=== PATIENT | female | born 1990 | race African-American/Black ===

== ENCOUNTER 2017-10-28 23:56 | Inpatient (IN) | payer MEDICAID ==
[~2017-10-28] VITALS: Ht 152.4 cm; Wt 64.0 kg
[~2017-10-28 23:56] MED LIST: IBUP600 PO; PERI8.6T PO; PRENTAB72 PO
[2017-10-29] VITALS (19 sets, daily range): BP systolic 115–132; BP diastolic 52–71; PULSE 88–102; RESP 18; TEMP 97.6–98.5
[2017-10-29] MEDS ORDERED: MAGNESIUM SULFATE 4 GM PREMIX 100 ML IV ONE (01:00)
[2017-10-29] MEDS ORDERED: CALCIUM GLUCONATE 10% 1 GM/10 ML VIAL IV PUSH PRN (01:00)
[2017-10-29] MEDS ORDERED: MAGNESIUM SULFATE 40 GM PREMIX 1,000 ML ONE (01:04)
--- NOTE | 2017-10-29 01:19 | HHI.HP ---
HPI Chief Complaint Yue wynn Date Seen: Oct 29, 2017 Time Seen: 01:00 Travel History International Travel<30 Days: No Contact w/Intl Traveler<30Days: No Known Affected Area: No History of Present Illness HPI Patient is 27-year-old black female L3 now at approximately 30 weeks gestation EDC 01/02/18 by an earlier ultrasound who presents with gross premature rupture the membranes proximally 1 hour prior to presentation to OB ED she denies contractions but does have some pain in the abdomen, no vaginal bleeding noted. heart rates in the 140s and the is reactive for 30 weeks has no regular contractions only an occasional one. has a history of poor obstetric outcome with incompetent cervix in the past she is delivered 3 babies prematurely survived because of her cerclage placed and those babies delivered in the 26-32 week range, she had 3 other babies delivered of a 20-21 week range that were not with cerclages. This she had an ultrasound earlier in that gave the above due date and the gestational age now but that was her only visit she had no other visits no care no cerclage with this Weeks Gestation: 30 Para: 6 : 7 Last Menstrual Period: Oct 29, 2017 History Obstetric History Obstetric History Patient's history of incompetent cervix with 3 premature deliveries that had a cerclage in place all still delivering early between 26 and 32 weeks, she had the 3 other babies born in the 20-21 wk range that were delivered because of incompetent cervix and did not survive. She's had no care with this of no cerclage placed the other cerclages were placed in the [facility] Past Surgical History Narrative Surgical Cervical cerclages Social History Alcohol Use: No Tobacco Use: No Substance Abuse: No Allergies-Medications (Allergen,Severity, Reaction): Uncoded Allergies: no known allergy (Allergy, Unknown, 10/29/17) Review of Systems General / Constitutional: No: Fever, Weight Gain, Chills, Other Eyes: No: Diploplia, Blurred Vision, Visual changes, Pain, Photophobia HENT: No: Headaches, Vertigo, Lightheadedness Cardiovascular: No: Irregular Rhythm, Chest Pain or Discomfort, Palpitations, Tachycardia, Syncope, Varicosities, Edema, Cyanosis Respiratory: No: Cough, Short of Breath, Other Gastrointestinal: No: Nausea, Vomiting, Diarrhea Genitourinary: No: Decreased Urinary Output, Oliguria Musculoskeletal: No: Limited ROM, Weakness, Cramping, Edema, Pain Skin: No Rash, No Itching, No Dryness, No Lumps, No Change in Pigmentation, No Change in Nails, No Alopecia, No Lesions Neurologic: No: Weakness, Dizziness, Syncope, Focal Abnormalities, Coordination Problem, Headache, Slurred Speech, Seizures Psychiatric: No: Depression, Suicidal Ideations, Homicidal Ideation Endocrine: No: Heat Intolerance, Cold Intolerance, Polydipsia, Polyuria, Other Physical Exam Narrative GENERAL: Well-nourished, well-developed patient. SKIN: Warm and dry. HEAD: Normocephalic and atraumatic. EYES: No scleral icterus. No injection or drainage. ENT: No nasal drainage noted. Mucous membranes pink. Airway patent. NECK: Supple, trachea midline. No JVD. CARDIOVASCULAR: Regular rate and rhythm without murmurs, gallops, or rubs. RESPIRATORY: Breath sounds equal bilaterally. No accessory muscle use. BREASTS: Bilateral exam showed no masses , no retractions, no nipple discharge. ABDOMEN/GI: Abdomen soft, non-tender, bowel sounds present, no rebound, no guarding Gravid to [-26] weeks size Fundal Height: [-26] GENITOURINARY: External Genitalia: intact and normal in appearance Speculum exam performed--there is pooling in the posterior fornix clear amniotic fluid cervix appears thick maybe fingertip dilated at the most there was some cervical mucus present at the external os no blood seen Cervix: [Fingertip-] Dilatation: [Fingertip-] Effacement: [-] Thick Station: [-3] Presentation: [Incomplete breech seen on ultrasound-] Membranes: [ ruptured] amnio sure positive Uterine Contractions: [Occasional-] FHT's: Category: [1-] Baseline: [-133] Reactive: [-yes] Variability: [mod-] Decels: [-0] EXTREMITIES: No cyanosis or edema. BACK: Nontender without obvious deformity. No CVA tenderness. NEUROLOGICAL: Awake and alert. Motor and sensory grossly within normal limits. Five out of 5 muscle strength in all muscle groups. Normal speech. Caprini VTE Risk Assessment Caprini VTE Risk Assessment: No/Low Risk (score <= 1) Caprini Risk Assessment Model Point Value = 1 Point Value = 2 Point Value = 3 Point Value = 5 Age 41-60 Minor surgery BMI > 25 kg/m2 Swollen legs Varicose veins or History of unexplained or recurrent spontaneous Oral contraceptives or hormone replacement Sepsis (< 1 month) Serious lung disease, including pneumonia (< 1 month) Abnormal pulmonary function Acute myocardial infarction Congestive heart failure (< 1 month) History of inflammatory bowel disease Medical patient at bed rest Age 61-74 Arthroscopic surgery Major open surgery (> 45 min) Laparoscopic surgery (> 45 min) Malignancy Confined to bed (> 72 hours) Immobilizing plaster cast Central venous access Age >= 75 History of VTE Family history of VTE Factor V Leiden Prothrombin [id number] Lupus anticoagulant Anticardiolipin antibodies Elevated serum homocysteine Heparin-induced thrombocytopenia Other congenital or acquired thrombophilia Stroke (< 1 month) Elective arthroplasty Hip, pelvis, or leg fracture Acute spinal cord injury (< 1 month) Prophylaxis Regimen Total Risk Factor Score Risk Level Prophylaxis Regimen 0-1 Low Early ambulation 2 Moderate Order ONE of the following: *Sequential Compression Device (SCD) *Heparin 5000 units SQ BID 3-4 Higher Order ONE of the following medications: *Heparin 5000 units SQ TID *Enoxaparin/Lovenox 40 mg SQ daily (WT < 150 kg, CrCl > 30 mL/min) *Enoxaparin/Lovenox 30 mg SQ daily (WT < 150 kg, CrCl > 10-29 mL/min) *Enoxaparin/Lovenox 30 mg SQ BID (WT < 150 kg, CrCl > 30 mL/min) AND/OR *Sequential Compression Device (SCD) 5 or more Highest Order ONE of the following medications: *Heparin 5000 units SQ TID (Preferred with Epidurals) *Enoxaparin/Lovenox 40 mg SQ daily (WT < 150 kg, CrCl > 30 mL/min) *Enoxaparin/Lovenox 30 mg SQ daily (WT < 150 kg, CrCl > 10-29 mL/min) *Enoxaparin/Lovenox 30 mg SQ BID (WT < 150 kg, CrCl > 30 mL/min) AND *Sequential Compression Device (SCD) Data Data Orders Orders Ob Poc Ultrasound (10/29/17 ) Admit To Inpatient (10/29/17 ) Vital Signs (Adult) Q4H (10/29/17 00:55) Activity Bed Rest (10/29/17 00:55) Heart (10/29/17 00:55) Diet Npo (10/29/17 Breakfast) Lactated Ringer's 1000 Ml Inj (Lr 1000 M (10/29/17 00:55) Sodium Chloride 0.9% Flush (Ns Flush) (10/29/17 01:00) Sodium Chloride 0.9% Flush (Ns Flush) (10/29/17 09:00) Betamethasone Inj (Celestone Soluspan In (10/29/17 01:00) Magnesium Sulfate 40 Gm Premix (Magnesiu (10/29/17 00:55) Calcium Gluconate Inj (Calcium Gluconate (10/29/17 01:00) Ondansetron Inj (Zofran Inj) (10/29/17 01:00) Complete Blood Count With Diff (10/30/17 06:00) Complete Blood Count With Diff (10/31/17 06:00) Complete Blood Count With Diff (11/01/17 06:00) Hold Clot (10/29/17 00:55) Group B Beta Strep Scrn (Gbs) (10/29/17 00:55) Gc And Chlamydia Pcr (10/29/17 00:55) Drug Screen, Random Urine (10/29/17 00:55) Urinalysis - C+S If Indicated (10/29/17 00:55) Magnesium Sulfate 4 Gm Premix (Magnesium (10/29/17 01:00) Us Ob Limited (10/29/17 09:00) Ampicillin Inj (Ampicillin Inj) (10/29/17 04:00) Erythromycin Ec (Emycin Ec) (10/29/17 06:00) Labs Bedside ultrasound was done by myself shows a single intrauterine in the incomplete breech presentation with growth parameters measuring out at 28 weeks on average and 1142 g weight, basic anatomy within normal limits, there is essentially anhydramnios no amniotic fluid really identified, the cardiac motions present and normal right with breathing was noted, movement noted and tone also seen. There is a fundal placenta grade 1 Assessment/Plan Assessment and Plan Impression-P PROM at 30 weeks with breech fetus at 28 weeks size less than 1142 g estimated weight, amnio sure is positive and gross rupture of fluid noted on speculum exam History of incompetent cervix and poor obstetric outcome in essentially all her previous pregnancies, have 3 pregnancies survived due to cerclage placement Plan--admit, conservative care for the time being I explained to the patient that one of 2 things will happen in her case either she'll go into labor or show signs of infection chorioamnionitis or both, also the fetus could actually show signs of distress and required delivery because of that and because the baby is breech she would have section which she's never had before and does not want this time but would be needed in this case. Also plan IV magnesium sulfate neuroprotective effect as well as tocolyse this, IM steroids, IV antibiotics ampicillin IV and erythromycin by mouth[ not available here IV] , plan the GBS and GC and chlamydia PCR studies Puma Connors II, MD Oct 29, 2017 01:19
[2017-10-29] MEDS: LACTATED RINGER'S 1000 ML INJ 1,000 ML IV SCH ×2 (01:24→12:53)
[2017-10-29] MEDS: MAGNESIUM SULFATE 40 GM PREMIX 1,000 ML IV SCH ×4 (01:25→23:25)
[2017-10-29] MEDS: BETAMETHASONE SOD PHOS/ACETATE SUSP 30 MG/5 ML VIAL IM SCH (01:44)
[2017-10-29 02:24] LABS: BLOOD, URINE SMALL (NEG); COMMENT (UR) CATH-CULT NOT IND; CULTURE IF INDICATED CATH CULTURE NOT IND; GLUCOSE,URINE NEG (NEG); KETONE, URINE NEG (NEG); NITRITE,URINE NEG (NEG); SQUAMOUS EPITHELIAL CELL URINE <1 /hpf (0-5); URINE COLOR YELLOW (YELLW/STRAW)
[2017-10-29 02:37] LABS: ALT (GPT) 14 U/L (10-53); ANION GAP 7 MEQ/L (5-15); AST (GOT) 11 U/L (15-37); BICARBONATE 26.8 MEQ/L (21.0-32.0); BLOOD UREA NITROGEN 11 MG/DL (7-18); CHLORIDE 103 MEQ/L (98-107); GLOMERULAR FILTRATION RATE 246 ML/MIN (>89); SODIUM (NA) 137 MEQ/L (136-145)
[2017-10-29 02:39] LABS: ALKALINE PHOSPHATASE 74 U/L (45-117); TOTAL BILIRUBIN ADULT 0.2 MG/DL (0.2-1.0)
[2017-10-29] MEDS: AMPICILLIN INJ 2,000 MG in SODIUM CHLORIDE 0.9% INJ 100 ML IV SCH ×4 (04:00→21:32)
[2017-10-29 04:01] LABS: CHLAMYDIA PCR NOT DETECTED (NOT DETECT); NEISSERIA PCR NOT DETECTED (NOT DETECT)
[2017-10-29 04:30] LABS: RUBELLA IGG ANTIBODY 74.6 IU/mL (10.0-500.0); RUBELLA STATUS IMMUNE (IMMUNE)
[2017-10-29] MEDS ORDERED: DIPHTH/TETANUS/ACEL PERTUSSIS (BOOSTER) 0.5 ML VIAL/PFS IM ONE (07:00)
[2017-10-29 07:18] LABS: AUTOMATED NEUTROPHIL # 10.2 TH/MM3 (1.8-7.7); BASOPHIL # 0.1 TH/MM3 (0-0.2); BASOPHIL % 0.7 % (0.0-2.0); EOSINOPHIL # 0.2 TH/MM3 (0-0.4); EOSINOPHIL % 1.5 % (0.0-4.0); HEMATOCRIT 30.8 % (35.0-46.0); LYMPH % 19.8 % (9.0-44.0); LYMPHOCYTE # 2.9 TH/MM3 (1.0-4.8); MEAN CELL VOLUME 82.7 FL (80.0-100.0); MEAN CORPUSCULAR HEMOGLOBIN 26.4 PG (27.0-34.0); MEAN CORPUSCULAR HGB CONC 31.9 % (32.0-36.0); MONO % 7.6 % (0.0-8.0); NEUT % 70.4 % (16.0-70.0); PLATELET COUNT 363 TH/MM3 (150-450); RED BLOOD COUNT 3.72 MIL/MM3 (4.00-5.30); WHITE BLOOD COUNT 14.4 TH/MM3 (4.0-11.0)
[2017-10-29] MEDS: ERYTHROMYCIN EC 500 MG TABEC PO SCH ×3 (07:26→19:31)
[2017-10-29 07:27] LABS: HEMO FLAGS AUTO DIFF
[2017-10-29 08:11] LABS: EOSINOPHILS 3 % (0-4); MYELOCYTES 1 % (0-0); NEUTROPHIL # MANUAL DIFF 9.9 TH/MM3 (1.8-7.7); POLYS (SEG NEUTROPHILS) 68 % (16-70); WBC DIFF SAMPLE 100
[2017-10-29 08:12] LABS: PLATELET ESTIMATE SMEAR NORMAL (NORMAL); PLATELET MORPHOLOGY NORMAL (NORMAL); SCAN/DIFF FINAL DIFF MANUAL
[2017-10-29] MEDS: SODIUM CHLORIDE 0.9% FLUSH 10 ML FLUSH IV FLUSH SCH ×2 (09:00→19:41)
--- NOTE | 2017-10-29 13:20 | HHI.PR ---
Addendum to Inpatient Note Addendum Reason: Additional Documentation Additional Information Consult Maternal Hx: 27 y/o, at 30 weeks gestation (based on previous u/s) with diagnosis of PPROM, incompetent cervix (no cerclage placed this ), and late/poor PNC. Mother admitted to [facility] on 10/29/17, secondary to grossly ruptured membranes. Most recent Ultrasound on 10/29/17 confirms intrauterine with estimated gestational age of 28 weeks, estimated weight of 1142 grams , and anhydramnios with incomplete breech presentation. Maternal risk factors/complications: UDS + for cocaine, 3 previous losses at 20- 21 weeks when cerclage not placed (3 living children delivered at 26-32 weeks when cerclage was was placed). Maternal Labs: Blood type A+, Rubella immune, RPR non reactive, Hepatitis B pending, HIV pending, GBS negative, GC negative, CZ negative, Hepatitis C pending Maternal Medications: Magnesium Betamethasone (1st dose given 10/29 at 0144) Ampicillin Erythromycin Social: Marital status: single Family Hx: Mother reports no genetic or inherited conditions. Reports other children are well. Substance Abuse: UDS + for cocaine Discussion: Dr. Gracia and SETH met with mother in her room to provide information regarding delivery. Mom was receptive to visit but appeared somewhat groggy. Mom was informed that [facility] has a level 2 NICU and is able to take care of babies that are 28 weeks or greater and that are 1000 grams and greater. She was told that we anticipate being able to care for her baby but that if infant is more premature than expected or weighs less than expected, that the would have to be transferred to a level III NICU. We discussed that the baby may have breathing difficulties when born and require CPAP or intubation with possible surfactant. She was told that the would need peripheral IVs and possibly a central line to provide IVF, TPN , and medications. Feeds would be started and gradually advanced as tolerated. Mom enquired about but was told that she would not be able to do so given her positive drug screen for cocaine. Mom was also informed that would be monitored jaundice and would potentially need treatment. Mom was also told that her baby may require antibiotics after given concerns for infection with PPROM. Mom remembered the use of isolettes from her previous babies but was unaware that the infant would not be staying in her room. Mom was educated on the NICU, visitation policies, and that she is strongly encouraged to visit as much as possible and participate in the care of her baby. Mom enquired about kangaroo care and was encouraged to do that as well. Mom was made aware of medical staff presence 10/06 and that someone would attend her delivery. Mom was also made aware of other operations support specialist such as case management and then chip separator. Mom had no further questions a the conclusion of the discussion and verbalized understanding. 40 minutes was spent on this consultation and greater than 50% of the consultation time was spent with the patient. Lucinda Hebert Oct 29, 2017 13:20
[2017-10-30] VITALS (10 sets, daily range): BP systolic 117–127; BP diastolic 49–56; PULSE 83–94; RESP 18–20; TEMP 98–98.8
[2017-10-30] MEDS: ERYTHROMYCIN EC 500 MG TABEC PO SCH ×5 (00:49→23:39)
[2017-10-30] MEDS: BETAMETHASONE SOD PHOS/ACETATE SUSP 30 MG/5 ML VIAL IM SCH (00:53)
[2017-10-30] MEDS: LACTATED RINGER'S 1000 ML INJ 1,000 ML IV SCH ×2 (00:55→16:01)
[2017-10-30] MEDS: SODIUM CHLORIDE 0.9% FLUSH 10 ML FLUSH IV FLUSH PRN ×3 (01:12→15:32)
[2017-10-30] MEDS: AMPICILLIN INJ 2,000 MG in SODIUM CHLORIDE 0.9% INJ 100 ML IV SCH ×4 (04:47→22:31)
[2017-10-30] MEDS: SODIUM CHLORIDE 0.9% FLUSH 10 ML FLUSH IV FLUSH SCH ×2 (09:51→21:00)
--- NOTE | 2017-10-30 10:10 | PD.OB.ANTE ---
Subjective Interval History Patient is doing well this morning, she has no acute concerns except nausea that she had this morning with the medication. She denies fever or chills, headache, chest pain, shortness of breath, contractions, dysuria. She had a lot of questions about if the baby can be born vaginally as she would prefer not to have a . She also wanted toast and noted that she has been drug free during this so she believes that the cocaine that was found in her urine drug screen must have been given to her by somebody without her knowledge. Objective Vital Signs Vital Signs Date Time Temp Pulse Resp B/P (MAP) Pulse Ox O2 Delivery O2 Flow Rate FiO2 10/30/17 07:40 18 10/30/17 07:40 98.3 10/30/17 07:38 94 127/54 (78) 10/30/17 04:53 98.0 18 10/30/17 01:01 98.3 18 10/29/17 21:32 96 132/60 (84) 10/29/17 21:29 97.8 18 10/29/17 18:34 95 115/61 (79) 10/29/17 18:33 98.5 18 10/29/17 14:31 102 120/52 (74) 10/29/17 14:31 97.6 18 10/29/17 10:41 18 10/29/17 10:35 90 123/62 (82) Lab & Micro Results Date/Time Source Procedure Growth Status 10/29/17 07:45 Genital Genital Region Group B Streptococcus Screen Pending Received Physical Exam GENERAL: Well-nourished, well-developed patient. CARDIOVASCULAR: Regular rate and rhythm without murmurs, gallops, or rubs. RESPIRATORY: Breath sounds equal bilaterally. No accessory muscle use. ABDOMEN/GI: Abdomen soft, non-tender. Fundus: soft Uterine Contractions: None FHT's: Category: I Baseline: 120 Reactive: Accelerations present Variability: Moderate Decels: None EXTREMITIES: No cyanosis or edema, non-tender, without signs of DVT. Assessment and Plan Assessment and Plan 1. PPROM -Breech presentation at 30 weeks -Plan for cesarian section -IV magnesium was discontinued yesterday -Received 2 IM steroid doses -Continue IV ampicillin and PO erythromycin to promote latency and for chorioamnionitis prophylaxis -Has received 5 doses of IV ampicillin. Will switch to oral ampicillin 500 mg orally three times daily for five days -Perinatology consult pending -Neonatology consulted: * Will take care of baby in the [facility] * Advised against due to UDS positive for cocaine 2. Social -UDS positive for cocaine - watch for signs of withdrawal -Baby is to be given up for adoption Janiya Thapa MD R2 Oct 30, 2017 10:10
[2017-10-30] MEDS ORDERED: PRENATAL VITAMIN CHEWABLE TAB ONE ×2 (11:48→11:59)
[2017-10-30] MEDS: MULTIVIT/MIN/PREN/FOL AC/IRON PRENATAL TAB PO SCH (12:17)
[2017-10-30] MEDS ORDERED: ceFAZolin INJ 1,000 MG VIAL ONE (12:29)
[2017-10-30] MEDS: ONDANSETRON HCL 4 MG/2 ML VIAL IV PUSH PRN (15:32)
--- NOTE | 2017-10-30 20:13 | PD.CONS ---
HPI Travel History International Travel<30 Days: No Contact w/Intl Traveler<30Days: No Known Affected Area: No History of Present Illness HPI Consult requested by Hospitalist managing Mrs. Taylor regarding PROM at 30 weeks gestation. Ms. Taylor is a 27 year old AAF at 30 weeks gestation. She presented to [facility] last pm complaining of LOF. She was confirmed to have ruptured membranes on exam with a cervix by SSE that appears closed. She denies cramping, bleeding , fever/chills, abdominal pain or other discomfort at this time. Endorses movement. She has had no care during this . She is dated by an early ultrasound with a stated EDC of 01/02/18. She has a history of cervical incompetence. She has lost 3 pregnancies in the 20-22 week range due to this. She has had 3 pregnancies in which she was given a cerclage and ultimately delivered between 26-32 weeks due to PTL. She does not have a cerclage currently. Her tox screen is positive for cocaine which she denies using. Overall, she is a difficult historian. PMH: none PSH: cercalge x 3 POB: as per HPI. PGYN: denies abnormal Pap or cervical procedures ALL: NKDA Soc: denies drug or alcohol use, says she has DCF case open and would not use cocaine while she was being investigated. Does endorse a history of multidrug use in the past. Allergies-Medications (Allergen,Severity, Reaction): Coded Allergies: No Known Allergies (Verified Allergy, Unknown, 10/30/17) Home Meds Active Scripts Sennosides-Docusate Sodium (Nikki-Colace 8.6-50 mg) 1 Tab Tab, 2 TAB PO Q12H Y for CONSTIPATION, #60 TAB Prov:Jeramie Serrano MD R3 02/10/16 Ibuprofen (Motrin 600 Mg Tab) 600 Mg Tab, 600 MG PO Q6H Y for CRAMPING, #30 TAB Prov:Jeramie Serrano MD R3 02/10/16 Reported Medications Vit W/ Ferrous Fumara () Tab, 1 TAB PO DAILY 04/08/13 Review of Systems General / Constitutional: No: Fever, Weight Gain, Weight Loss, Chills, Other Respiratory: No: Cough, Short of Breath, Wheezing, Other Gastrointestinal: No: Nausea, Vomiting, Diarrhea, Abdominal Pain, Hematemesis, Hematochezia, Constipation, Changes in Bowel Habits, Indigestion, Loss of Appetite, Other Physical Exam Vital Signs Date Time Temp Pulse Resp B/P (MAP) Pulse Ox O2 Delivery O2 Flow Rate FiO2 10/30/17 17:48 98.6 10/30/17 15:19 98.6 10/30/17 15:19 92 121/56 (77) 10/30/17 15:19 20 10/30/17 11:52 94 122/49 (73) 10/30/17 11:52 98.0 18 10/30/17 07:40 18 10/30/17 07:40 98.3 10/30/17 07:38 94 127/54 (78) 10/30/17 04:53 98.0 18 10/30/17 01:01 98.3 18 10/29/17 21:32 96 132/60 (84) 10/29/17 21:29 97.8 18 Narrative GENERAL: Well-nourished, well-developed patient. SKIN: Warm and dry. HEAD: Normocephalic and atraumatic. EYES: No scleral icterus. No injection or drainage. ENT: No nasal drainage noted. Mucous membranes pink. Airway patent. NECK: no thyromegaly RESPIRATORY: unlabored ABDOMEN/GI: Abdomen soft, non-tender Gravid uterus non-tender Fundal Height: [-] GENITOURINARY: deferred FHT's: normal baseline, reactive without decels currently EXTREMITIES: No cyanosis or edema. NEUROLOGICAL: Awake and alert. Motor and sensory grossly within normal limits. Data Data Orders Orders Heart (10/29/17 20:09) ^ Other Nursing Orders (10/29/17 20:09) Consult Perinatology (10/30/17 ) Ncwttjha-Akb-Unhpd-Iron Prenat (Stuartna (10/30/17 11:00) Cpmcjad-Wla-Yd-Iron Prena Chew ( (10/30/17 11:48) Xqvsuej-Mcz-Ad-Iron Prena Chew ( (10/30/17 11:59) Cefazolin Inj (Ancef Inj) (10/30/17 12:29) Labs Date/Time Source Procedure Growth Status 10/29/17 07:45 Genital Genital Region Group B Streptococcus Screen - Preliminary RESULTS PENDING Resulted MDM Medical Record Reviewed: Yes Interpretation(s) 1. 30 week IUP by stated EDC 2. PPROM without evidence of chorioamnionitis, abruption, or labor at this time. 3. History of cervical insufficiency. No cerclage this . 4. No PNC. 5. Tox screen positive for cocaine. Pt denies use. 6. Breech presentation. 7. testing currently reassuring. Counseling: Risks and benefits of expectant management of PROM were reviewed with the patient in detail. All questions answered to her satisfaction. She indicated agreement with the plan of care. She seemed mainly preoccupied regarding her cocaine result and wants to know how this will affect her ability to breastfeed. Recommendations: 1. Continue inpatient management. 2. Twice daily NST. 3. Twice weekly BPP/Dopplers. 4. Complete steroids. 5. Until 32 weeks, Magneisum sulfate will be indicated for neuroprotection with onset of labor. Exception in the case of abruption. 6. Will require due to presentation. 7. Deliver at 34 weeks gestation or sooner with evidence of chorioamnionitis, labor, abruption, or non-reassuring testing. 8. NICU consult requested. 9. GBS culture, gonorrhea, chlamydia, HIV, Hepatitis B and C Ab, and labs. HgA1c as no screening for diabetes and GTT will not be accurate immediately after steroids. 10. Social work consultation. 40 minute consultation aVlerie Keller MD Oct 30, 2017 20:13
--- NOTE | 2017-10-30 22:09 | HHI.PR ---
Subjective Remarks NST report Indications: IUP at 30 weeks, no care, P PROM, breech, history of incompetent cervix, cocaine use NST with heart rate in the 120s to 130s with moderate long-term variability, good accelerations, no decelerations. The heart rate tracing is reactive for gestational age. This is a category 1 heart rate tracing Follow-up: We'll continue follow-up NSTs Final diagnosis IUP at 30 weeks, no care, PPROM, breech, history of incompetent cervix, cocaine use Objective Vital Signs Date Time Temp Pulse Resp B/P (MAP) Pulse Ox O2 Delivery O2 Flow Rate FiO2 10/30/17 19:50 91 121/54 (76) 10/30/17 19:49 98.8 18 10/30/17 17:48 98.6 10/30/17 15:19 98.6 10/30/17 15:19 92 121/56 (77) 10/30/17 15:19 20 10/30/17 11:52 94 122/49 (73) 10/30/17 11:52 98.0 18 10/30/17 07:40 18 10/30/17 07:40 98.3 10/30/17 07:38 94 127/54 (78) 10/30/17 04:53 98.0 18 10/30/17 01:01 98.3 18 Result Diagram: 10/29/17 0120 10/29/17 0120 Monica Manzo MD Oct 30, 2017 22:09
[2017-10-31] VITALS (13 sets, daily range): BP systolic 96–115; BP diastolic 57–79; PULSE 79–90; RESP 6–18; TEMP 98.1–98.6
[2017-10-31] MEDS: LACTATED RINGER'S 1000 ML INJ 1,000 ML IV SCH ×4 (04:00→22:19)
[2017-10-31] MEDS: AMPICILLIN INJ 2,000 MG in SODIUM CHLORIDE 0.9% INJ 100 ML IV SCH (05:04)
[2017-10-31] MEDS: ERYTHROMYCIN EC 500 MG TABEC PO SCH ×3 (05:04→18:37)
[2017-10-31] MEDS: ONDANSETRON HCL 4 MG/2 ML VIAL IV PUSH PRN (05:26)
--- NOTE | 2017-10-31 08:55 | HHI.PR ---
Subjective Remarks NST report Indications: IUP at 30.3 weeks, no care, P PROM, breech, history of incompetent cervix, cocaine use NST with heart rate in the 120s to 130s with moderate long-term variability, good accelerations, no decelerations. The heart rate tracing is reactive for gestational age. This is a category 1 heart rate tracing. No ctx are noted. Follow-up: We'll continue follow-up NSTs Final diagnosis IUP at 30.3 weeks, no care, PPROM, breech, history of incompetent cervix, cocaine use Objective Vital Signs Date Time Temp Pulse Resp B/P (MAP) Pulse Ox O2 Delivery O2 Flow Rate FiO2 10/31/17 08:48 83 110/57 (74) 10/31/17 08:48 98.2 10/31/17 08:48 17 10/31/17 02:00 98.6 10/30/17 23:41 83 117/56 (76) 10/30/17 19:50 91 121/54 (76) 10/30/17 19:49 98.8 18 10/30/17 17:48 98.6 10/30/17 15:19 98.6 10/30/17 15:19 92 121/56 (77) 10/30/17 15:19 20 10/30/17 11:52 94 122/49 (73) 10/30/17 11:52 98.0 18 Result Diagram: 10/29/1711910/29/17119 Monica Manzo MD Oct 31, 2017 08:55
[2017-10-31] MEDS: MULTIVIT/MIN/PREN/FOL AC/IRON PRENATAL TAB PO SCH (09:00)
[2017-10-31] MEDS: SODIUM CHLORIDE 0.9% FLUSH 10 ML FLUSH IV FLUSH SCH ×2 (09:00→21:00)
--- NOTE | 2017-10-31 12:23 | PD.OB.ANTE ---
Subjective Interval History Ms Taylor had no acute events overnight. Pt is having no vaginal bleeding or ctx. Tolerating PO, no fever or chills, no pain. Denies CP, SOB, N/V/D and DVT pain. Antepartum ROS: Denies: New complaints Objective Vital Signs Vital Signs Date Time Temp Pulse Resp B/P (MAP) Pulse Ox O2 Delivery O2 Flow Rate FiO2 10/31/17 12:03 98.1 79 17 114/79 (91) 10/31/17 08:48 83 110/57 (74) 10/31/17 08:48 98.2 10/31/17 08:48 17 10/31/17 02:00 98.6 10/30/17 23:41 83 117/56 (76) 10/30/17 19:50 91 121/54 (76) 10/30/17 19:49 98.8 18 10/30/17 17:48 98.6 10/30/17 15:19 98.6 10/30/17 15:19 92 121/56 (77) 10/30/17 15:19 20 Lab & Micro Results Date/Time Source Procedure Growth Status 10/29/17 07:45 Genital Genital Region Group B Streptococcus Screen - Preliminary NO GROUP B STREP ISOLATED Resulted Physical Exam GENERAL: Well-nourished, well-developed patient in NAD. CARDIOVASCULAR: Regular rate and rhythm without murmur, gallop, or rub. RESPIRATORY: Breath sounds equal bilaterally in all lung sexton. No accessory muscle use. ABDOMEN/GI: Abdomen soft, non-tender. Fundus: 30 weeks GENITOURINARY: Cervix: - Dilatation: 0 Effacement: - Station: -3 Presentation: breech Membranes: PPROM Uterine Contractions: no FHT's: Category: 1 Baseline: 140 Reactive: yes Variability: moderate Decels: none EXTREMITIES: No cyanosis or edema, non-tender, without signs of DVT. Assessment and Plan Assessment and Plan 27YO L3 at 30/2 weeks with PPROM presents with breech, cervical incompetence and cocaine use. No ctx or bleeding or discharge. Cat 1 tracing w/ BL 140, reactive, moderate, no decels. 1. PPROM -Breech presentation at 30 weeks -Plan for cesarian section -IV magnesium was discontinued yesterday -Received 2 IM steroid doses -Continue IV ampicillin and PO erythromycin to promote latency and for chorioamnionitis prophylaxis -Has received 5 doses of IV ampicillin. -Start oral amoxicillin 500 mg orally three times daily for five days -Perinatology consult pending -Neonatology consulted: * Will take care of baby in the [facility] * Advised against due to UDS positive for cocaine 2. Social -UDS positive for cocaine - watch for signs of withdrawal -Baby is to be given up for adoption Pt seen and discussed with Waylon Morales and Carlos Lamb MD R1 Oct 31, 2017 12:23
[2017-10-31] MEDS: AMOXICILLIN (TRIHYDRATE) 500 MG CAP PO SCH ×2 (13:25→18:37)
[2017-11-01] VITALS (12 sets, daily range): BP systolic 109–120; BP diastolic 33–67; PULSE 77–98; RESP 16–18; TEMP 98–99.3
[2017-11-01] MEDS: ERYTHROMYCIN EC 500 MG TABEC PO SCH ×4 (00:13→17:58)
[2017-11-01 08:11] LABS: AUTOMATED NEUTROPHIL # 10.3 TH/MM3 (1.8-7.7); BASOPHIL % 0.1 % (0.0-2.0); EOSINOPHIL # 0.1 TH/MM3 (0-0.4); EOSINOPHIL % 0.4 % (0.0-4.0); HEMATOCRIT 27.1 % (35.0-46.0); HEMO FLAGS DIFF FINAL; LYMPH % 15.3 % (9.0-44.0); LYMPHOCYTE # 2.1 TH/MM3 (1.0-4.8); MEAN CELL VOLUME 80.9 FL (80.0-100.0); MEAN CORPUSCULAR HEMOGLOBIN 26.6 PG (27.0-34.0); MEAN CORPUSCULAR HGB CONC 32.8 % (32.0-36.0); MONO % 10.3 % (0.0-8.0); NEUT % 73.9 % (16.0-70.0); PLATELET COUNT 314 TH/MM3 (150-450); RED BLOOD COUNT 3.35 MIL/MM3 (4.00-5.30); RED CELL DISTRIBUTION WIDTH 18.2 % (11.6-17.2); WHITE BLOOD COUNT 13.9 TH/MM3 (4.0-11.0)
[2017-11-01] MEDS: MULTIVIT/MIN/PREN/FOL AC/IRON PRENATAL TAB PO SCH (09:00)
[2017-11-01] MEDS: SODIUM CHLORIDE 0.9% FLUSH 10 ML FLUSH IV FLUSH SCH ×2 (09:00→21:00)
[2017-11-01] MEDS: LACTATED RINGER'S 1000 ML INJ 1,000 ML IV SCH ×2 (09:15→17:58)
[2017-11-01] MEDS: AMOXICILLIN (TRIHYDRATE) 500 MG CAP PO SCH ×3 (09:15→17:58)
--- NOTE | 2017-11-01 11:47 | PD.OB.ANTE ---
Subjective Interval History Patient is doing okay this morning. She states that she had nausea and vomited all day yesterday until 6pm. She was only able to keep down a slice of pizza that her family members brought. She was wondering why she is not jose f. Objective Vital Signs Vital Signs Date Time Temp Pulse Resp B/P (MAP) Pulse Ox O2 Delivery O2 Flow Rate FiO2 11/01/17 06:14 77 111/50 (70) 11/01/17 06:13 98.8 16 11/01/17 00:44 99.3 11/01/17 00:41 93 109/33 (58) 10/31/17 20:41 98.1 10/31/17 20:31 90 115/57 (76) 10/31/17 20:30 16 10/31/17 18:55 98.1 17 10/31/17 18:37 84 96/58 (71) 10/31/17 18:00 17 10/31/17 17:00 8 10/31/17 17:00 18 10/31/17 16:00 18 10/31/17 15:00 6 10/31/17 15:00 16 10/31/17 14:00 17 10/31/17 12:03 98.1 79 17 114/79 (91) Lab & Micro Results Test 11/01/17 07:34 White Blood Count 13.9 TH/MM3 Red Blood Count 3.35 MIL/MM3 Hemoglobin 8.9 GM/DL Hematocrit 27.1 % Mean Corpuscular Volume 80.9 FL Mean Corpuscular Hemoglobin 26.6 PG Mean Corpuscular Hemoglobin Concent 32.8 % Red Cell Distribution Width 18.2 % Platelet Count 314 TH/MM3 Mean Platelet Volume 7.4 FL Neutrophils (%) (Auto) 73.9 % Lymphocytes (%) (Auto) 15.3 % Monocytes (%) (Auto) 10.3 % Eosinophils (%) (Auto) 0.4 % Basophils (%) (Auto) 0.1 % Neutrophils # (Auto) 10.3 TH/MM3 Lymphocytes # (Auto) 2.1 TH/MM3 Monocytes # (Auto) 1.4 TH/MM3 Eosinophils # (Auto) 0.1 TH/MM3 Basophils # (Auto) 0.0 TH/MM3 CBC Comment DIFF FINAL Differential Comment Date/Time Source Procedure Growth Status 10/29/17 07:45 Genital Genital Region Group B Streptococcus Screen - Final NO GROUP B STREP ISOLATED Complete Physical Exam GENERAL: Well-nourished, well-developed patient. CARDIOVASCULAR: Regular rate and rhythm without murmurs, gallops, or rubs. RESPIRATORY: Breath sounds equal bilaterally. No accessory muscle use. ABDOMEN/GI: Abdomen soft, non-tender. Fundus: soft, gravid GENITOURINARY: EXTREMITIES: No cyanosis or edema, non-tender, without signs of DVT. Assessment and Plan Assessment and Plan 27YO L3 at 30/3 weeks with PPROM presents with breech, cervical incompetence and cocaine use. No ctx or bleeding or discharge. 1. PPROM -Breech presentation at 30 weeks -Plan for cesarian section -IV magnesium was discontinued 2 days prior -Received 2 IM steroid doses -Continue PO ampicillin and PO erythromycin to promote latency and for chorioamnionitis prophylaxis 2. Social -UDS positive for cocaine - watch for signs of withdrawal -Baby is to be given up for adoption Pt discussed with Dr. Waylon Thapa,Janiya Roberts MD R2 Nov 01, 2017 11:47
--- NOTE | 2017-11-01 19:54 | HHI.PR ---
[facility] Note Note NST report Indications: IUP at 30 weeks, no care, PPROM, breech, history of incompetent cervix, cocaine use NST with heart rate in the 140s to 150s with moderate long-term variability, accelerations present, no decelerations. The heart rate tracing is reactive for gestational age. This is a category 1 heart rate tracing Follow-up: We'll continue follow-up NSTs Final diagnosis: IUP at 30 weeks, no care, PPROM, breech, history of incompetent cervix, cocaine use Janiya Thapa MD R2 Nov 01, 2017 19:54
[2017-11-01] MEDS: DOCUSATE SODIUM 100 MG CAP PO PRN (22:03)
[2017-11-02] VITALS (16 sets, daily range): BP systolic 105–127; BP diastolic 46–68; PULSE 84–118; RESP 16–18; TEMP 97.8–98.4
[2017-11-02] MEDS: ERYTHROMYCIN EC 500 MG TABEC PO SCH ×4 (00:07→17:57)
[2017-11-02] MEDS: LACTATED RINGER'S 1000 ML INJ 1,000 ML IV SCH (00:55)
[2017-11-02] MEDS: SODIUM CHLORIDE 0.9% FLUSH 10 ML FLUSH IV FLUSH SCH (09:15)
[2017-11-02] MEDS: AMOXICILLIN (TRIHYDRATE) 500 MG CAP PO SCH ×3 (09:15→17:57)
[2017-11-02] MEDS: MULTIVIT/MIN/PREN/FOL AC/IRON PRENATAL TAB PO SCH (09:15)
[2017-11-02] MEDS: DOCUSATE SODIUM 100 MG CAP PO PRN (09:39)
--- NOTE | 2017-11-02 10:19 | PD.OB.ANTE ---
Subjective Interval History Pt reports nausea this AM. No ctx or VB. Continues to have some LOF. Baby is for adoption. Objective Vital Signs Vital Signs Date Time Temp Pulse Resp B/P (MAP) Pulse Ox O2 Delivery O2 Flow Rate FiO2 11/02/17 09:23 18 11/02/17 09:20 93 119/63 (81) 11/02/17 07:58 88 113/55 (74) 11/02/17 07:57 18 11/02/17 07:56 98.1 11/02/17 06:39 84 106/46 (66) 11/02/17 06:36 16 11/02/17 06:00 16 11/02/17 04:00 16 11/02/17 01:00 18 11/02/17 00:09 98.4 11/01/17 23:00 18 11/01/17 22:13 120/56 (77) 11/01/17 22:13 87 11/01/17 19:43 18 11/01/17 18:29 98 114/67 (83) 11/01/17 18:27 98.0 11/01/17 13:52 93 120/57 (78) 11/01/17 13:00 99.0 18 11/01/17 13:00 93 120/57 (78) 11/01/17 11:51 99.0 Lab & Micro Results Date/Time Source Procedure Growth Status 10/29/17 07:45 Genital Genital Region Group B Streptococcus Screen - Final NO GROUP B STREP ISOLATED Complete Physical Exam GENERAL: Well-nourished, well-developed patient. CARDIOVASCULAR: Well perfused RESPIRATORY: respirations unlabored ABDOMEN/GI: Abdomen soft, non-tender. EXTREMITIES: No cyanosis or edema, non-tender, without signs of DVT. FHT's: 140, +accels, occasional mild variable decels, moderate variability, age appropriate [place]: single ctx this morning Assessment and Plan Assessment and Plan 27y/o at 30.4weeks with PPROM and breech. 1. PPROM -- continue latency abx PO -- no s/s of chorio, fundus non-tender 2. Breech -- for c/s @ 34wks or sooner PRN 3. well being -- NST q shift (age appropriate) -- s/p BMZ x2 -- s/p MagSO4 for neuroprotection 4. Social -- cocaine use -- BUFA (baby up for adoption) Carlene Green MD Nov 02, 2017 10:19
--- NOTE | 2017-11-02 16:42 | PD.OB.ANTE ---
Subjective Interval History 27 yo with PPROM at 30 weeks and 4 days. Reports mucoid vaginal discharge while using the bathroom. Reports active movements. No vaginal bleeding. No contractions. Antepartum ROS: Reports: Other (constipation) Objective Vital Signs Vital Signs Date Time Temp Pulse Resp B/P (MAP) Pulse Ox O2 Delivery O2 Flow Rate FiO2 11/02/17 14:43 111 18 105/48 (67) 11/02/17 13:11 98.1 16 11/02/17 13:11 108 127/68 (87) 11/02/17 09:23 18 11/02/17 09:20 93 119/63 (81) 11/02/17 07:58 88 113/55 (74) 11/02/17 07:57 18 11/02/17 07:56 98.1 11/02/17 06:39 84 106/46 (66) 11/02/17 06:36 16 11/02/17 06:00 16 11/02/17 04:00 16 11/02/17 01:00 18 11/02/17 00:09 98.4 11/01/17 23:00 18 11/01/17 22:13 120/56 (77) 11/01/17 22:13 87 11/01/17 19:43 18 11/01/17 18:29 98 114/67 (83) 11/01/17 18:27 98.0 Lab & Micro Results Date/Time Source Procedure Growth Status 10/29/17 07:45 Genital Genital Region Group B Streptococcus Screen - Final NO GROUP B STREP ISOLATED Complete Physical Exam GENERAL: Well-nourished, well-developed patient. CARDIOVASCULAR: Regular rate and rhythm without murmurs, gallops, or rubs. RESPIRATORY: Breath sounds equal bilaterally. No accessory muscle use. ABDOMEN/GI: Abdomen soft, non-tender. Fundus: [-] GENITOURINARY: External Genitalia: intact and normal in appearance Cervix: [soft] Dilatation: [closed] Effacement: [long] Station: [-2] Presentation: [Breech] Membranes: [ruptured] Uterine Contractions: [none] FHT's: Category: [1] Baseline: [-] Reactive: [-] Variability: [-] Decels: [none] EXTREMITIES: No cyanosis or edema, non-tender, without signs of DVT. Assessment and Plan Assessment and Plan 27y/o at 30.4weeks with PPROM and breech. 1. PPROM -- continue latency abx PO -- no s/s of chorio, fundus non-tender 2. Breech -- for c/s @ 34wks or sooner PRN 3. Constipation. Continue Colace 100mg PO BID Elian Barron MD Nov 02, 2017 16:42
[2017-11-02] MEDS ORDERED: LACTATED RINGER'S 1000 ML INJ 1,000 ML IV ONE (23:15)
[2017-11-02] MEDS ORDERED: ACETAMINOPHEN 325 MG TAB PO PRN (23:15)
--- NOTE | 2017-11-02 23:20 | PD.OB.ANTE ---
Subjective Interval History Pt c/o abdominal pain past 30 minutes. No vaginal bleeding . Active movements. c/o constipation. Objective Vital Signs Vital Signs Date Time Temp Pulse Resp B/P (MAP) Pulse Ox O2 Delivery O2 Flow Rate FiO2 11/02/17 21:26 98.1 103 18 120/53 (75) 11/02/17 18:02 97.8 18 11/02/17 18:01 118 114/53 (73) 11/02/17 14:43 111 18 105/48 (67) 11/02/17 13:11 98.1 16 11/02/17 13:11 108 127/68 (87) 11/02/17 09:23 18 11/02/17 09:20 93 119/63 (81) 11/02/17 07:58 88 113/55 (74) 11/02/17 07:57 18 11/02/17 07:56 98.1 11/02/17 06:39 84 106/46 (66) 11/02/17 06:36 16 11/02/17 06:00 16 11/02/17 04:00 16 11/02/17 01:00 18 11/02/17 00:09 98.4 Lab & Micro Results Date/Time Source Procedure Growth Status 10/29/17 07:45 Genital Genital Region Group B Streptococcus Screen - Final NO GROUP B STREP ISOLATED Complete Physical Exam GENERAL: Well-nourished, well-developed patient. CARDIOVASCULAR: Regular rate and rhythm without murmurs, gallops, or rubs. RESPIRATORY: Breath sounds equal bilaterally. No accessory muscle use. ABDOMEN/GI: Abdomen soft, non-tender. Fundus: [-] GENITOURINARY: External Genitalia: intact and normal in appearance Cervix: [soft] Dilatation: [2cm] Effacement: [50%] Station: [-2] Presentation: [breech] Membranes: [-] Uterine Contractions: [irregular] FHT's: Category: [1] Baseline: [140s] Reactive: [-] Variability: [moderate] Decels: [none] EXTREMITIES: No cyanosis or edema, non-tender, without signs of DVT. Assessment and Plan Assessment and Plan 27y/o at 30.4weeks with PPROM and breech. 1 labor. Cervical change from FT to 2cm. Irregular contractions. Non tender abdomen between contractions. Will give IV LR bolus. Will recheck in 1 hour 2. PPROM -- continue latency abx PO -- no s/s of chorio, fundus non-tender 2. Elian Radford MD Nov 02, 2017 23:20
[2017-11-02 23:33] LABS: AUTOMATED NEUTROPHIL # 20.4 TH/MM3 (1.8-7.7); BASOPHIL # 0.1 TH/MM3 (0-0.2); BASOPHIL % 0.5 % (0.0-2.0); EOSINOPHIL # 0.1 TH/MM3 (0-0.4); EOSINOPHIL % 0.5 % (0.0-4.0); LYMPH % 7.7 % (9.0-44.0); LYMPHOCYTE # 1.9 TH/MM3 (1.0-4.8); MEAN CELL VOLUME 80.9 FL (80.0-100.0); MEAN CORPUSCULAR HEMOGLOBIN 25.1 PG (27.0-34.0); MONO % 7.2 % (0.0-8.0); NEUT % 84.1 % (16.0-70.0); PLATELET COUNT 360 TH/MM3 (150-450); RED BLOOD COUNT 3.83 MIL/MM3 (4.00-5.30); RED CELL DISTRIBUTION WIDTH 17.4 % (11.6-17.2); WHITE BLOOD COUNT 24.2 TH/MM3 (4.0-11.0)
[2017-11-02 23:39] LABS: HEMO FLAGS AUTO DIFF
[2017-11-03] VITALS (15 sets, daily range): BP systolic 108–136; BP diastolic 59–86; PULSE 78–92; RESP 12–24; TEMP 97.7–98.4; O2SAT 100
--- NOTE | 2017-11-03 00:15 | PD.OB.ANTE ---
Subjective Interval History Pt continues to c/o contractions. Now wishes to have a bowel movement. No fevers or chills. No abdominal pain between contractions. No vaginal bleeding. Objective Vital Signs Vital Signs Date Time Temp Pulse Resp B/P (MAP) Pulse Ox O2 Delivery O2 Flow Rate FiO2 11/02/17 21:26 98.1 103 18 120/53 (75) 11/02/17 18:02 97.8 18 11/02/17 18:01 118 114/53 (73) 11/02/17 14:43 111 18 105/48 (67) 11/02/17 13:11 98.1 16 11/02/17 13:11 108 127/68 (87) 11/02/17 09:23 18 11/02/17 09:20 93 119/63 (81) 11/02/17 07:58 88 113/55 (74) 11/02/17 07:57 18 11/02/17 07:56 98.1 11/02/17 06:39 84 106/46 (66) 11/02/17 06:36 16 11/02/17 06:00 16 11/02/17 04:00 16 11/02/17 01:00 18 Lab & Micro Results Test 11/02/17 23:25 White Blood Count 24.2 TH/MM3 Red Blood Count 3.83 MIL/MM3 Hemoglobin 9.6 GM/DL Hematocrit 31.0 % Mean Corpuscular Volume 80.9 FL Mean Corpuscular Hemoglobin 25.1 PG Mean Corpuscular Hemoglobin Concent 31.0 % Red Cell Distribution Width 17.4 % Platelet Count 360 TH/MM3 Mean Platelet Volume 7.2 FL Neutrophils (%) (Auto) 84.1 % Lymphocytes (%) (Auto) 7.7 % Monocytes (%) (Auto) 7.2 % Eosinophils (%) (Auto) 0.5 % Basophils (%) (Auto) 0.5 % Neutrophils # (Auto) 20.4 TH/MM3 Lymphocytes # (Auto) 1.9 TH/MM3 Monocytes # (Auto) 1.7 TH/MM3 Eosinophils # (Auto) 0.1 TH/MM3 Basophils # (Auto) 0.1 TH/MM3 CBC Comment AUTO DIFF Date/Time Source Procedure Growth Status 10/29/17 07:45 Genital Genital Region Group B Streptococcus Screen - Final NO GROUP B STREP ISOLATED Complete Physical Exam GENERAL: Well-nourished, well-developed patient. CARDIOVASCULAR: Regular rate and rhythm without murmurs, gallops, or rubs. RESPIRATORY: Breath sounds equal bilaterally. No accessory muscle use. ABDOMEN/GI: Abdomen soft, non-tender. Fundus: [-] GENITOURINARY: External Genitalia: intact and normal in appearance Cervix: [soft] Dilatation: [3cm] Effacement: [70%] Station: [-1] Presentation: [breech] Membranes: [ruptured] Uterine Contractions: [every 4-8 minutes-] FHT's: Category: [1] Baseline: [-] Reactive: [-] Variability: [-] Decels: [-] EXTREMITIES: No cyanosis or edema, non-tender, without signs of DVT. Assessment and Plan Assessment and Plan 27y/o at 30.4weeks with PPROM and breech. 1 labor. Cervical change from FT to 2cm, now 3 cm Irregular contractions. Non tender abdomen between contractions. Will proceed to primary C Section, PTD /Breech malpresentation Elian Barron MD Nov 03, 2017 00:15
[2017-11-03 00:17] LABS: BANDS 4 % (0-6); METAMYELOCYTES 1 % (0-1); NEUTROPHIL # MANUAL DIFF 19.4 TH/MM3 (1.8-7.7); POLYS (SEG NEUTROPHILS) 75 % (16-70); WBC DIFF SAMPLE 100
[2017-11-03 00:19] LABS: ACANTHOCYTES OCC (NORMAL); OVALOCYTES 1+ (NORMAL); PLATELET ESTIMATE SMEAR NORMAL (NORMAL); PLATELET MORPHOLOGY ENLARGED (NORMAL)
[2017-11-03 00:20] LABS: SCAN/DIFF FINAL DIFF MANUAL
[2017-11-03] MEDS ORDERED: ACETAMINOPHEN 1000 MG/100 ML 0 ML IV ONE (01:53)
--- NOTE | 2017-11-03 01:56 | PD.OB.DELI ---
Procedure Note Section Procedure Pre Op Diagnosis: (1) with 30 completed weeks gestation (2) Breech presentation of fetus (3) labor (4) premature rupture of membranes Post Op Diagnosis: (1) with 30 completed weeks gestation (2) Breech presentation of fetus (3) labor (4) premature rupture of membranes Performed by Elian Barron Procedure: Classical Section Indication for delivery: malposition Previous condition: None Informed consent obtained: For anesthesia, For procedure Confirmed correct: Patient, Time-out taken Anesthesia: Other (General anesthesia with endotracheal tube, after ineffective spinal) Medication prior to procedure: Antacids, Antibiotics, IV, Antiemetics Monitoring during procedure: Blood pressure monitoring, prospecting driller helper, Pulse oximetry Urinary catheter: Inserted using sterile technique, To dependent drainage Sterile preparation: In usual fashion, With 2% chlorexidine (Hibiclens), With drapes to expose affected area Position: Supine with wedge to right side Operative Features Skin Incision: Pfannenstiel Uterine Incision: Classical Membranes Ruptured: Previously Presentation: Breech Delivery date: Nov 03, 2017 Delivery time: 00:46 Delivery of : Uneventful : Female One Minute : 2 Five Minute : 4 Ten Minute : 6 Status of infant: Viable, Cord blood Placenta delivered: Intact, Sent to pathology Medications: Antibiotics, Oxytocin Estimated blood loss: 600cc Procedure tolerated: Well Maternal Condition: Stable Baby Complications: Respiratory distress, Other Condition: Guarded Procedure in detail Pt was brought into OR where she was identified and informed consent was confirmed. She was positioned for spinal anesthesia which was induced without any difficulty, and then positioned in dorsal lithotomy with a slight leftward tilt. A Jay catheter had previously been inserted into the bladder and this was allowed to drain continuously under gravity throughout the case. She was then cleansed and draped in standard sterile fashion. However after testing for adequacy of anesthesia, spinal was not effective. Decision was made to proceed to general anesthesia. General anesthesia was induced with difficulty and she was smoothly intubated. Pfannensteil incision was made with a scalpel down to rectus fascia which was incised in a transverse fashiomn. Rectus fascia was then dissected off from the rectus muscles, both superiorly and inferiorly using Bovie cautery. Muscles were then digitally, and underling peritoneum identified and again entered digitally and then stretched. Midline vertical incision was made with a scalpel, and was delivered from the standard breech manouvers. presented with salas breech. Cord was clamped and divided and infant was passed off to waiting Bindery Leadperson. Uterus was then exteriorized and closed in 3 layers, first of ) Vicryl in continuous locking fashion for hemostasis and the second of the same suture material was used to imbricate the first. After confirming hemostasis, the serosa was then reapproximated with 2.O viryl in baseball stitch fashion. Gutters were cleansed of all clots and debris, uterus was returned to it's intraperitoneal location. SurgiCell matrix was placed over the incision and Interceed adhesion barrier was then used to overlay this. Parietal peritoneum was then closed with 2.0 Vicryl, and same suture used to reapproximate edges of rectus muscles in midline. Rectus fascia was closed with 1 PDS and then subcutaneous layer repproximated in continuous locking fashion. Finally, skin closed in subcuticular fashion with 3.0 Monocryl. Elian Barron MD Nov 03, 2017 01:56
[2017-11-03] MEDS ORDERED: ONDANSETRON HCL 4 MG/2 ML VIAL IV PUSH PRN (02:15)
[2017-11-03] MEDS ORDERED: OXYTOCIN 30 UNITS-500ML PREMIX 500 ML IV ONE (02:15)
[2017-11-03] MEDS ORDERED: oxyCODONE/ACETAMINOPHEN 5 MG/325 MG TAB PO PRN (02:15)
[2017-11-03] MEDS ORDERED: NALOXONE HCL 0.4 MG/ML AMP IV PUSH PRN ×3 (02:15→03:00)
[2017-11-03] MEDS ORDERED: SIMETHICONE 80 MG CHEWABLE TAB PO PRN (02:15)
[2017-11-03] MEDS ORDERED: diphenhydrAMINE HCL 25 MG CAP PO PRN ×2 (02:15→02:45)
[2017-11-03] MEDS ORDERED: DOCUSATE SODIUM 50 MG/SENNA 8.6 MG TAB PO PRN (02:15)
[2017-11-03] MEDS ORDERED: ZOLPIDEM TARTRATE 5 MG TAB PO PRN (02:15)
[2017-11-03] MEDS ORDERED: KETOROLAC TROMETHAMINE 60 MG/2 ML (IM) VIAL IM PRN (02:15)
[2017-11-03] MEDS ORDERED: diphenhydrAMINE HCL 50 MG/ML VIAL IV PUSH PRN ×2 (02:15→02:45)
[2017-11-03] MEDS ORDERED: ACETAMINOPHEN 325 MG TAB PO PRN (02:15)
[2017-11-03] MEDS ORDERED: SODIUM CHLORIDE 0.9% FLUSH 10 ML FLUSH IV FLUSH PRN (02:15)
[2017-11-03] MEDS ORDERED: ACETAMINOPHEN 1000 MG/100 ML 100 ML IV ONE (02:35)
[2017-11-03] MEDS ORDERED: HYDROmorphone HCL PCA 6 MG/30 ML IV ONE (02:39)
[2017-11-03] MEDS ORDERED: HYDROmorphone HCL PCA 6 MG/30 ML IV SCH ×2 (02:45→03:00)
[2017-11-03] MEDS ORDERED: OXYTOCIN 30 UNITS-500ML PREMIX 500 ML ONE (03:24)
[2017-11-03 05:54] LABS: BLOOD GAS BASE EXCESS 1.8 mmol/L (-2-2); BLOOD GAS O2 HGB SATURATION 65 % (90-100); CORD BLOOD GAS HCO3 28 mmol/L (21-29); CORD BLOOD GAS PCO2 60 mmHG (34-78); CORD BLOOD GAS PH 7.29 (7.14-7.42); CORD BLOOD GAS PO2 33 mmHG (3.0-40.0); DRAW SITE CORD BLOOD; STAT YES
[2017-11-03] MEDS: ERYTHROMYCIN EC 500 MG TABEC PO SCH ×2 (06:00)
[2017-11-03] MEDS ORDERED: PCA - TOTAL MG DILAUDID DELIVERED PER SHIFT OTHER SCH ×4 (06:00)
[2017-11-03] MEDS: LACTATED RINGER'S 1000 ML INJ 1,000 ML IV SCH ×2 (07:02→17:02)
[2017-11-03] MEDS: AMOXICILLIN (TRIHYDRATE) 500 MG CAP PO SCH (10:00)
[2017-11-03] MEDS: MULTIVIT/MIN/PREN/FOL AC/IRON PRENATAL TAB PO SCH (10:00)
[2017-11-03] MEDS ORDERED: HYDROmorphone HCL PF 2 MG/ML VIAL IV PUSH PRN (10:30)
[2017-11-03] MEDS: KETOROLAC TROMETHAMINE 30 MG/ML (IVP) VIAL IV PUSH SCH ×2 (11:55→18:41)
[2017-11-03] MEDS ORDERED: OXYTOCIN 30 UNITS-500ML PREMIX 500 ML IV PRN (12:15)
[2017-11-03] MEDS: oxyCODONE/ACETAMINOPHEN 5 MG/325 MG TAB PO PRN ×2 (18:41→22:52)
[2017-11-03] MEDS: SODIUM CHLORIDE 0.9% FLUSH 10 ML FLUSH IV FLUSH SCH (18:41)
[2017-11-04] VITALS (9 sets, daily range): BP systolic 113–139; BP diastolic 54–66; PULSE 84–106; RESP 16–18; TEMP 98.1–99.1; O2SAT 100
[2017-11-04] MEDS: oxyCODONE/ACETAMINOPHEN 5 MG/325 MG TAB PO PRN ×3 (04:07→22:22)
[2017-11-04] MEDS: KETOROLAC TROMETHAMINE 30 MG/ML (IVP) VIAL IV PUSH SCH ×4 (04:07→23:57)
[2017-11-04 05:56] LABS: AUTOMATED NEUTROPHIL # 22.4 TH/MM3 (1.8-7.7); BASOPHIL # 0.1 TH/MM3 (0-0.2); BASOPHIL % 0.2 % (0.0-2.0); EOSINOPHIL # 0.1 TH/MM3 (0-0.4); EOSINOPHIL % 0.3 % (0.0-4.0); LYMPH % 5.6 % (9.0-44.0); LYMPHOCYTE # 1.4 TH/MM3 (1.0-4.8); MEAN CELL VOLUME 81.9 FL (80.0-100.0); MEAN CORPUSCULAR HEMOGLOBIN 26.1 PG (27.0-34.0); MEAN CORPUSCULAR HGB CONC 31.9 % (32.0-36.0); MONO % 6.1 % (0.0-8.0); NEUT % 87.8 % (16.0-70.0); PLATELET COUNT 270 TH/MM3 (150-450); RED BLOOD COUNT 2.33 MIL/MM3 (4.00-5.30); RED CELL DISTRIBUTION WIDTH 17.7 % (11.6-17.2); WHITE BLOOD COUNT 25.5 TH/MM3 (4.0-11.0)
[2017-11-04 06:05] LABS: HEMO FLAGS DIFF FINAL
[2017-11-04 06:08] LABS: HEMATOCRIT 19.1 % (35.0-46.0)
[2017-11-04] MEDS ORDERED: ACETAMINOPHEN 325 MG TAB PO PRN (06:45)
[2017-11-04] MEDS ORDERED: SODIUM CHLOR 0.9% 250 ML INJ 250 ML IV ONE (06:45)
[2017-11-04] MEDS ORDERED: diphenhydrAMINE HCL 25 MG CAP PO PRN (06:45)
[2017-11-04] MEDS: MULTIVIT/MIN/PREN/FOL AC/IRON PRENATAL TAB PO SCH ×2 (08:22→08:25)
--- NOTE | 2017-11-04 08:51 | HHI.OB ---
Subjective Post Day: 1 Remarks Postoperative day number 1. AFVSS overnight. Pain controlled. Incision not draining. Decreased lochia. Denies dysuria. No breast tenderness. She is feeding the baby via breast. Appetite good. No nausea or vomiting. No flatus. No bowel movement. Ambulating well. Denies calf pain, shortness of breath, or cough. Otherwise, she is doing well this morning and has no other complaints. Objective Vitals/I&O Vital Signs Date Time Temp Pulse Resp B/P (MAP) Pulse Ox O2 Delivery O2 Flow Rate FiO2 11/04/17 07:37 98.2 16 11/04/17 07:37 94 113/54 (73) 11/04/17 04:00 121/60 (80) 11/04/17 04:00 99.1 86 18 11/04/17 00:00 99.0 106 16 124/57 (79) 11/03/17 19:27 90 130/59 (82) 11/03/17 19:27 98.4 12 11/03/17 13:00 97.7 80 18 136/78 (97) Objective Remarks GENERAL: Well-nourished, well-developed patient. CARDIOVASCULAR: Regular rate and rhythm without murmurs, gallops, or rubs. RESPIRATORY: Breath sounds equal bilaterally. No accessory muscle use. ABDOMEN/GI: Abdomen soft, non-tender. Fundus: Firm, non-tender at umbilicus. GENITOURINARY: Light to moderate bleeding. EXTREMITIES: No cyanosis or edema, non-tender, without signs of DVT. Medications and IVs Current Medications Medications (Trade) Dose Ordered Sig/Layo Route Start Time Stop Time Status Last Admin (Stuartnatal Plus 3 ) 1 tab DAILY PO 10/30/17 11:00 11/03/17 10:00 Oxytocin 500 ml @ 100 mls/hr UNSCH X1 PRN IV 11/03/17 12:15 11/04/17 12:14 (NS Flush) 2 ml BID IV FLUSH 11/03/17 09:00 11/03/17 18:41 (NS Flush) 2 ml UNSCH PRN IV FLUSH 11/03/17 02:15 (Mylicon Chew) 80 mg QID PRN PO 11/03/17 02:15 (Tylenol) 650 mg Q6H PRN PO 11/03/17 02:15 (Percocet 5-325 Mg) 1 tab Q4H PRN PO 11/03/17 02:15 (Percocet 5-325 Mg) 2 tab Q4H PRN PO 11/03/17 02:15 11/04/17 04:07 (Nikki-Colace) 2 tab Q12H PRN PO 11/03/17 02:15 (Ambien) 5 mg HS PRN PO 11/03/17 02:15 (M-M-R Ii Inj) 0.5 ml ONCE ONCE SQ 11/04/17 16:00 11/04/17 16:01 (Boostrix Inj) 0.5 ml ONCE ONCE IM 11/04/17 16:00 11/04/17 16:01 (Zofran Inj) 4 mg Q6H PRN IV PUSH 11/03/17 02:15 (Narcan Inj) 0.4 mg UNSCH PRN IV PUSH 11/03/17 02:15 (Benadryl Inj) 25 mg Q6H PRN IV PUSH 11/03/17 02:15 11/03/17 05:01 (Benadryl) 25 mg Q6H PRN PO 11/03/17 02:15 (Dilaudid Pf Inj) 2 mg Q4H PRN IV PUSH 11/03/17 10:30 (Toradol Inj) 30 mg Q6HR IV PUSH 11/03/17 12:00 11/04/17 04:07 Sodium Chloride 250 ml @ 15 mls/hr ONCE ONCE IV 11/04/17 06:45 11/04/17 23:24 (Tylenol) 650 mg Q4H PRN PO 11/04/17 06:45 11/04/17 08:22 (Benadryl) 25 mg Q4H PRN PO 11/04/17 06:45 11/04/17 08:22 Assessment/Plan Assessment and Plan 27-year-old @30 weeks PPD #1 s/p C/S for breech. 1. Post- --AF VSS --Continue routine care --Motrin and Percocet when necessary for pain --Encourage OOB --Pelvic rest for 6 weeks will need follow-up appointment at that time. One week follow-up for incision check. --Contraception: wants Depo --Anticipate discharge in 1-2 days 2. Anemia - H/H of 6.1/19.1 this AM - asymptomatic - 2 units PRBCs ordered w/f/u H/H 3. Constipation - Order Miralax x1 d/w Dr. Waylon Alvarez,Laura Henry MD R1 Nov 04, 2017 08:51
[2017-11-04] MEDS ORDERED: POLYETHYLENE GLYCOL 17 GM PKG PO ONE (09:00)
[2017-11-04] MEDS ORDERED: MEASLES, MUMPS, RUBELLA VACCINE 0.5 ML VIAL SQ ONE (16:00)
[2017-11-04] MEDS ORDERED: DIPHTH/TETANUS/ACEL PERTUSSIS (BOOSTER) 0.5 ML VIAL/PFS IM ONE (16:00)
[2017-11-04] MEDS ORDERED: BISACODYL 10 MG SUPP RECTAL ONE (18:30)
[2017-11-04] MEDS: SODIUM CHLORIDE 0.9% FLUSH 10 ML FLUSH IV FLUSH SCH (18:57)
[2017-11-05] MEDS: oxyCODONE/ACETAMINOPHEN 5 MG/325 MG TAB PO PRN ×3 (04:39→17:08)
[2017-11-05] MEDS: KETOROLAC TROMETHAMINE 30 MG/ML (IVP) VIAL IV PUSH SCH ×2 (04:39→11:38)
[2017-11-05 08:00] VITALS: BP 108/52; PULSE 88; RESP 15; RESP 16; TEMP 97.5
--- NOTE | 2017-11-05 08:43 | HHI.OB ---
Subjective Post Operative Day: 2 Remarks Postoperative day number 2. AFVSS overnight. Pain controlled. Incision not draining. Decreased lochia. Denies dysuria. No breast tenderness. She is feeding the baby via breast. Appetite good. No nausea or vomiting. No flatus. No bowel movement. Ambulating well. Denies calf pain, shortness of breath, or cough. Otherwise, she is doing well this morning and has no other complaints. Objective Vitals/I&O Vital Signs Date Time Temp Pulse Resp B/P (MAP) Pulse Ox O2 Delivery O2 Flow Rate FiO2 11/05/17 08:00 97.5 88 15 108/52 (70) 11/04/17 20:00 100 11/04/17 20:00 106 129/61 (83) 11/04/17 20:00 98.7 18 11/04/17 12:47 98.5 94 16 11/04/17 12:47 117/55 (75) 11/04/17 12:30 98.4 96 16 122/66 (84) 11/04/17 10:00 84 134/64 (87) 11/04/17 10:00 98.2 16 11/04/17 09:58 98.2 84 16 134/64 100 11/04/17 09:45 98.1 100 11/04/17 09:45 98.1 90 16 139/64 (89) 11/04/17 09:45 90 16 139/64 Result Diagram: 11/04/17 0518 Objective Remarks GENERAL: Well-nourished, well-developed patient. CARDIOVASCULAR: Regular rate and rhythm without murmurs, gallops, or rubs. RESPIRATORY: Breath sounds equal bilaterally. No accessory muscle use. ABDOMEN/GI: Abdomen soft, non-tender, bowel sounds present. Incision: Clean, dry and intact. Fundus: Firm, non-tender at umbilicus. GENITOURINARY: Light to moderate bleeding. EXTREMITIES: No cyanosis or edema, non-tender, without signs of DVT. Medications and IVs Current Medications Medications (Trade) Dose Ordered Sig/Layo Route Start Time Stop Time Status Last Admin (Stuartnatal Plus 3 ) 1 tab DAILY PO 10/30/17 11:00 11/03/17 10:00 (NS Flush) 2 ml BID IV FLUSH 11/03/17 09:00 11/03/17 18:41 (NS Flush) 2 ml UNSCH PRN IV FLUSH 11/03/17 02:15 (Mylicon Chew) 80 mg QID PRN PO 11/03/17 02:15 (Tylenol) 650 mg Q6H PRN PO 11/03/17 02:15 (Percocet 5-325 Mg) 1 tab Q4H PRN PO 11/03/17 02:15 (Percocet 5-325 Mg) 2 tab Q4H PRN PO 11/03/17 02:15 11/05/17 04:39 (Nikki-Colace) 2 tab Q12H PRN PO 11/03/17 02:15 11/04/17 18:09 (Ambien) 5 mg HS PRN PO 11/03/17 02:15 (Zofran Inj) 4 mg Q6H PRN IV PUSH 11/03/17 02:15 (Narcan Inj) 0.4 mg UNSCH PRN IV PUSH 11/03/17 02:15 (Benadryl Inj) 25 mg Q6H PRN IV PUSH 11/03/17 02:15 11/03/17 05:01 (Benadryl) 25 mg Q6H PRN PO 11/03/17 02:15 (Dilaudid Pf Inj) 2 mg Q4H PRN IV PUSH 11/03/17 10:30 (Toradol Inj) 30 mg Q6HR IV PUSH 11/03/17 12:00 11/05/17 04:39 (Tylenol) 650 mg Q4H PRN PO 11/04/17 06:45 11/04/17 08:22 (Benadryl) 25 mg Q4H PRN PO 11/04/17 06:45 11/04/17 08:22 Assessment/Plan Assessment and Plan 27-year-old @30 weeks POD #2 s/p C/S for breech presentation. 1. Post-Operative Care --AF VSS --Continue routine care --Motrin and Percocet when necessary for pain --Encourage OOB --Pelvic rest for 6 weeks will need follow-up appointment at that time. One week follow-up for incision check. --Contraception: wants Depo --Anticipate discharge in today or tomorrow 2. Anemia - H/H of 6.1/19.1 yesterday morning - asymptomatic, no significant menstrual bleeding - 2 units PRBCs administered w f/u H/H 3. Constipation - Ordered Miralax, suppository yesterday d/w Rebecca Robert MD R2 Nov 05, 2017 08:43
[2017-11-05] MEDS ORDERED: medroxyPROGESTERone ACETATE SUSP 150 MG/ML SYRINGE IM ONE (09:00)
[2017-11-05] MEDS: MULTIVIT/MIN/PREN/FOL AC/IRON PRENATAL TAB PO SCH (09:00)
[2017-11-05 11:05] LABS: HEMATOCRIT 25.8 % (35.0-46.0); REVIEW FLAG FINAL
--- NOTE | 2017-11-05 11:36 | HHI.DCPOC ---
Discharge Care Plan Diagnosis: (1) premature rupture of membranes (2) labor (3) Breech presentation of fetus (4) with 30 completed weeks gestation Report Symptoms to Your Doctor -Temperature above 100.5 degrees -Redness, of incision or excessive or foul smelling drainage -Unusual pain or calf pain -Increased vaginal bleeding -Painful or difficulty urinating -Feelings of extreme sadness or anxiety after 2 weeks Goals to Promote Your Health * To prevent worsening of your condition and complications * To maintain your health at the optimal level * Avoid inserting anything into the vagina for 6 weeks Directions to Meet Your Goals Take your medications as prescribed Follow your dietary instruction Follow activity as directed Ensure plenty of rest for recovery Drink fluids for hydration Keep your appointments as scheduled Take your immunizations and boosters as scheduled If your symptoms worsen call your PCP, if no PCP go to Urgent Care Center or Emergency Room Smoking is Dangerous to Your Health. Avoid second hand smoke Call the 24-hour crisis hotline for domestic abuse at Laura Alvarez MD R1 Nov 05, 2017 11:36
[2017-11-05] MEDS ORDERED: OXYC1TAB63 PO (11:40)
[2017-11-05] MEDS ORDERED: PERI PO (11:40)
[2017-11-05] MEDS ORDERED: IBUP-232 PO (11:41)
== END 2017-11-05 18:34 | disposition home or self-care (01) | DRG 765 ==
LOC: HOBED 23:56 → H2EA 10-29 01:33 → MERGE 10-29 01:33 → H1EA 11-03 03:41
PROVIDERS: ADMIT Obstetrics & Gynecology Maternal & Fetal Medicine; ATTEND Obstetrics & Gynecology Maternal & Fetal Medicine
PROC: 10D00Z0 Extraction of Products of Conception, High, Open Approach (ICD-10-PCS; principal; 2017-11-03)
PROC: 30233N1 Transfusion of Nonautologous Red Blood Cells into Peripheral Vein, Percutaneous Approach (ICD-10-PCS; 2017-11-04)
DX: O42.913 Preterm premature rupture of membranes, unspecified as to length of time between rupture and onset of labor, third trimester (principal); O60.14X0 Preterm labor third trimester with preterm delivery third trimester, not applicable or unspecified; O99.324 Drug use complicating childbirth; D64.9 Anemia, unspecified; K59.00 Constipation, unspecified; O32.1XX0 Maternal care for breech presentation, not applicable or unspecified; O99.02 Anemia complicating childbirth; F14.90 Cocaine use, unspecified, uncomplicated; Z3A.30 30 weeks gestation of pregnancy; Z37.0 Single live birth
CPT/HCPCS: 36430; 51702; 76815; 76816; 76819; 76820; 80053; 80074; 80307; 81001; 82805; 84112; 85007; 85014; 85018; 85025; 85027; 86592; 86703; 86762; 86850; 86900; 86901; 86920; 87081; 87150; 87491; 87591; 88307; 90715; C1765; J0131; J0290; J0690; J0702; J1050; J1170; J1200; J1885; J2405; J2590; J3475; J7120; P9016